=== PATIENT | female | born 1965 | race Hispanic/Latino ===

== ENCOUNTER 2018-04-12 14:01 | Observation (INO) | payer OTHER ==
[~2018-04-12] VITALS: Ht 170.2 cm; Wt 73.9 kg
[~2018-04-12 14:01] MED LIST: GLYBURIDE5 MG PO; LOSARTAN POTAS100 MG PO; METFORMIN HCL850 MG PO
[2018-04-12 15:01] LABS: BASOPHILS % 0.3 % (0.0-1.0); EOSINOPHILS # (AUTO) 0.1 (0.0-0.4); EOSINOPHILS % 1.7 % (0.0-6.0); HEMATOCRIT 42.3 % (34.2-44.1); HEMOGLOBIN 15.1 g/dL (12.0-16.0); LYMPHOCYTES # (AUTO) 2.2 (1.0-3.2); LYMPHOCYTES % 28.8 % (18.0-39.1); MEAN CORPUSCULAR HEMOGLOBIN 31.2 pg (28-32); MEAN CORPUSCULAR HGB CONC 35.7 g/dL (31-35); MEAN CORPUSCULAR VOLUME 87.4 fL (81-99); MONOCYTES # (AUTO) 0.7 (0.2-0.8); MONOCYTES % 9.3 % (4.4-11.3); NEUTROPHILS # (AUTO) 4.6 (2.1-6.9); NEUTROPHILS % 59.8 % (38.7-80.0); PLATELET COUNT 270 x10e3/uL (140-360); RED BLOOD COUNT 4.84 x10e6/uL (3.6-5.1); RED CELL DISTRIBUTION WIDTH 11.9 % (11.7-14.4)
[2018-04-12 15:02] LABS: CLARITY,URINE CLEAR (CLEAR); COLOR,URINE YELLOW (YELLOW); LEUKOCYTE ESTERASE ,URINE NEGATIVE (NEGATIVE); NITRITE,URINE NEGATIVE (NEGATIVE)
[2018-04-12 15:03] LABS: BILIRUBIN,URINE NEGATIVE (NEGATIVE); KETONES,URINE NEGATIVE (NEGATIVE); PROTEIN,URINE DIPSTICK NEGATIVE (NEGATIVE); URINE UROBILINOGEN 0.2 mg/dL (0.2 - 1)
[2018-04-12 15:14] LABS: EPITHELIAL CELLS,URINE FEW /LPF; RENAL EPITHELIAL CELLS,URINE RARE
[2018-04-12 15:17] LABS: ALANINE AMINOTRANSFERASE 62 IU/L (0-55); ALBUMIN/GLOBULIN RATIO 1.1 (0.8-2.0); ALKALINE PHOSPHATASE 106 IU/L (40-150); BLOOD UREA NITROGEN 14 mg/dL (7-26); BUN/CREATININE RATIO 18 (6-25); CALCIUM 10.1 mg/dL (8.4-10.2); CARBON DIOXIDE 24 mmol/L (22-29); CHLORIDE 98 mmol/L (98-107); CREATINE KINASE 221 IU/L (29-168); CREATININE, SERUM 0.76 mg/dL (0.57-1.11); EST GLOMERULAR FILTRATION RATE > 60 ML/MIN (60-); GLUCOSE 300 mg/dL (74-118); SODIUM 135 mmol/L (136-145)
[2018-04-12] MEDS ORDERED: ASPIRIN CHEW81 MG PO (16:02)
--- NOTE | 2018-04-12 16:05 | Diagnostic Imaging Report ---
Examination: Single AP view of the chest. COMPARISON: Chest x-ray 01/16/2017 INDICATION: None. IMPRESSION: 1. Lines and Tubes: None 2. Lungs are grossly clear. No consolidation or effusion. 3. Cardiomediastinal silhouette is normal. Pulmonary vasculature is normal. 4. No acute bony abnormalities. Signed by: Dr. Néstor Preciado M.D. on 04/12/2018 4:02 PM
[2018-04-12 16:10] LABS: INR 0.95; PROTHROMBIN TIME 11.9 seconds (11.9-14.5)
[2018-04-12 16:11] LABS: AMYLASE 195 U/L (25-125); LIPASE 375 U/L (8-78); PARTIAL THROMBOPLASTIN TIME 29.4 seconds (23.8-35.5)
[2018-04-12] MEDS ORDERED: ASPIRIN 81 MG CHEW TAB PO STA (16:26)
[2018-04-12] MEDS ORDERED: ASPIRIN 81 MG CHEW TAB PO ONE (16:45)
[2018-04-12] MEDS ORDERED: NITROGLYCERIN 0.4 MG SUBL SL PRN (16:45)
[2018-04-12] MEDS ORDERED: DEXTROSE 50% SYRINGE 50 ML IV PRN (16:45)
[2018-04-12] MEDS ORDERED: INSULIN REGULAR, HUMAN 100 UNIT/1 ML 3ML VIAL SQ ONE (16:45)
[2018-04-12 17:49] VITALS: BP 140/74
[2018-04-12 17:51] VITALS: BP 140/74
[2018-04-12 17:56] VITALS: BP 140/74
[2018-04-12 18:27] LABS: AMPHETAMINES SCREEN,URINE NEGATIVE (NEGATIVE); BENZODIAZEPINES SCREEN,URINE NEGATIVE (NEGATIVE); PHENCYCLIDINE SCREEN,URINE NEGATIVE (NEGATIVE)
[2018-04-12 20:00] VITALS: BP 141/75
[2018-04-12] MEDS: INSULIN REGULAR, HUMAN 100 UNIT/1 ML 3ML VIAL SQ SCH (20:26)
[2018-04-12] MEDS: MORPHINE SULFATE 2 MG/ML SYR IV PRN (22:46)
--- NOTE | 2018-04-12 23:23 | History and Physical ---
CLINICAL HISTORY: This is a 52-year-old woman, admitted via Dr. Cano's office and via the emergency room because of abdominal pains associated with abnormal EKG showing possible old anterior wall myocardial infarction. This patient says she presented to Dr. Cano's office today because of abdominal pains of 1-month duration. She states she has 2 different pains, 1 is in the lower back on the right side and the other is in the left upper quadrant. Both pains hurt about 7 on the scale of 10 and appears to be constant, not related to food ingestion and not related to certain position, although sitting may make the back pain worse. When asking for many occasions whether she has any other pains, she had failed to mention any chest pains. However, when it was asked why she was sent to the emergency room, she said she had abnormal EKG and now she said she had some fleeting chest pains described as sharp and then later as dull, lasting for a second, happening usually 2 or 3 times in sequence, a total of 10 times about a month ago, but none recently. She does have history of diabetes, hypertension and diet-controlled hyperlipidemia. MEDICATIONS: Not immediately available due to computer problem, but she is taking aspirin 81 mg per day as well as the above medications for diabetes and hypertension. PERSONAL AND SOCIAL HISTORY: Denies smoking, drinking, drug abuse. 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 FAMILY HISTORY: Father had bilateral knee replacements. Mother had CVA, diabetes, hypertension, right femoropopliteal bypass. Brothers and sisters are healthy. REVIEW OF SYSTEMS: Remarkable for dyspnea with exertion. She has some tingling in her fingers and toes which she thinks is due to diabetic neuropathy. Review of systems is otherwise noncontributory. PHYSICAL EXAMINATION GENERAL: She is alert, coherent. VITAL SIGNS: Stable. CARDIOVASCULAR: Jugular veins are not distended. S1, S2 are regular. There is no appreciable murmur. RESPIRATORY: Clear. ABDOMEN: Slight tenderness in left upper quadrant. EXTREMITIES: No cyanosis, clubbing or edema. IMPRESSION 1. Atypical left upper quadrant and lower back pains of undetermined etiology. Consider abdominal aneurysm, lumbar disk disease, gastritis. She does have some left upper quadrant tenderness. 2. Fleeting sharp and dull chest pains, not related to exertion with electrocardiogram showing possible old anterior wall myocardial infarction. 3. Diabetes. 4. Hypertension. 5. Diet-controlled hyperlipidemia. RECOMMENDATIONS: It should be noted that this patient has spoken with multiple nurses and gave them all different answers in lot of the above-mentioned complaints. No CT scan of the abdomen has been done. We will go ahead and proceed with CT scan of the abdomen as well as MRI scan of the lumbar spine. Because of left upper quadrant tenderness, consider gastroenterology consultation. With regard to the abnormal EKG, an echocardiogram has not been ordered. Her chest pains are very atypical for coronary artery disease although she does have multiple risk factors. In the future, she may benefit from stress testing. Thank you very much. Job#: [id number] cc:RASHAWN CANO MD
[2018-04-13] VITALS: BP 153/81
--- NOTE | 2018-04-13 00:08 | Diagnostic Imaging Report ---
EXAM: CT ABDOMEN/PELVIS W DATE: 04/12/2018 6:44 PM INDICATION: Abdominal pain COMPARISON: None TECHNIQUE: The abdomen and pelvis were scanned using a multidetector helical scanner. Coronal and sagittal reformations were obtained. IV Contrast: 100 ml Isovue 300/370 FINDINGS: LOWER THORAX: Mitral annulus calcification. Multiple bilateral pulmonary nodules, measuring up to 5 mm in the lower lobes. LIVER/BILIARY: Hepatic steatosis. No masses. No ductal dilatation. GALLBLADDER: Surgically absent SPLEEN: Unremarkable PANCREAS: Unremarkable ADRENALS: No nodules KIDNEYS: No suspicious renal masses. No hydronephrosis. GI TRACT: No wall thickening or evidence of obstruction. Normal appendix. Diverticulosis. VESSELS: Unremarkable PERITONEUM/RETROPERITONEUM: No free air or fluid LYMPH NODES: No lymphadenopathy REPRODUCTIVE ORGANS/BLADDER: Unremarkable SOFT TISSUES: Unremarkable BONES: No suspicious bone lesions. IMPRESSION: 1. No acute abnormality in the abdomen or pelvis. 2. Multiple bilateral pulmonary nodules. Recommend nonemergent follow-up chest CT. Signed by: Dr Allison Perez MD on 04/13/2018 12:05 AM
[2018-04-13 00:14] LABS: CREATINE KINASE MB 2.9 ng/mL (0-5.0)
[2018-04-13] MEDS ORDERED: SODIUM CHLORIDE 0.9% 50ML 50 ML ONE (00:47)
[2018-04-13] MEDS ORDERED: IOPAMIDOL 370 MG/ML 200 ML INFUS..BTL INJ ONE (00:47)
[2018-04-13 04:00] VITALS: BP 122/67
[2018-04-13] MEDS: MORPHINE SULFATE 2 MG/ML SYR IV PRN ×2 (04:45→21:47)
[2018-04-13 05:32] LABS: CHOL/HDL RATIO 3.9 (3.0-3.6); CHOLESTEROL 195 MD/DL (0-199); CREATINE KINASE 188 IU/L (29-168); HDL CHOLESTEROL 50 MG/DL (40-60); LDL CHOLESTEROL 90 MG/DL (60-130); TRIGLYCERIDES 276 MG/DL (0-149)
[2018-04-13] MEDS: INSULIN REGULAR, HUMAN 100 UNIT/1 ML 3ML VIAL SQ SCH ×4 (07:30→21:48)
[2018-04-13] MEDS: ASPIRIN 325 MG TAB EC PO SCH (07:34)
--- NOTE | 2018-04-13 07:34 | Consultation ---
DATE OF CONSULTATION: April 13, 2018 This is a 52 year old who has a history of hypertension, as well as diabetes, presented to the hospital because of abdominal pain, which is mainly up in the left upper quadrant area along with some nausea. She denies any vomiting along with this problem. Her workup so far she has had a CT scan of the abdomen and pelvis, which basically showed multiple bilateral pulmonary nodules. Her labs and CBC were okay. Chemistry including cardiac enzymes were unremarkable. Amylase was noted to be high at 195 and lipase was 275. Liver enzymes were mildly elevated too with AST of 44 and ALT of 62. She denies any history of ulcers in the past. Her other medical problems are significant for history of diabetes, history of hyperlipidemia, history of reflux, status post cholecystectomy. MEDICATIONS: At home are losartan. ALLERGIES: PENICILLIN. SOCIAL HISTORY: Denies any alcohol use. FAMILY HISTORY: Noncontributory. REVIEW OF SYSTEMS: Denies any chest pain at this point. Denies any shortness of breath. Denies any dysphagia or odynophagia. Denies any dysuria or hematuria or any kind of syncopal episode. PHYSICAL EXAMINATION GENERAL: The patient is awake, alert and appears to be stable. No acute distress at this point. VITAL SIGNS: Afebrile currently. Stable vital signs. HEENT: Normocephalic and atraumatic. Sclerae are anicteric. NECK: Supple. HEART: Regular. LUNGS: Clear. ABDOMEN: Soft. There is some tenderness in the left upper quadrant area. There is no rebound or mass. EXTREMITIES: No clubbing. LAB VALUES: Yesterday, BUN 14, creatinine 0.75, sodium 135. AST of 44 and ALT of 62. CBC was okay. Cardiac enzymes negative. CT scan as mentioned before. IMPRESSION 1. Abdominal pain. 2. The patient has some nausea. 3. . 4. Status post cholecystectomy. 5. CT scan shows fatty liver. RECOMMENDATIONS: Proceed with EGD scheduled for today. Follow labs. Job#: [id number] RI cc:MD RASHAWN HER MD
[2018-04-13 07:42] VITALS: BP 120/74
[2018-04-13 08:06] LABS: ALANINE AMINOTRANSFERASE 62 IU/L (0-55); ALBUMIN/GLOBULIN RATIO 1.1 (0.8-2.0); ALKALINE PHOSPHATASE 86 IU/L (40-150); ANION GAP 18.4 mmol/L (8-16); BLOOD UREA NITROGEN 14 mg/dL (7-26); BUN/CREATININE RATIO 19 (6-25); CALCIUM 10.2 mg/dL (8.4-10.2); CARBON DIOXIDE 25 mmol/L (22-29); CHLORIDE 102 mmol/L (98-107); CREATININE, SERUM 0.73 mg/dL (0.57-1.11); EST GLOMERULAR FILTRATION RATE > 60 ML/MIN (60-); GLUCOSE 143 mg/dL (74-118); POTASSIUM 4.4 mmol/L (3.5-5.1); SODIUM 141 mmol/L (136-145)
--- NOTE | 2018-04-13 09:30 | Cardiology Report ---
DATE OF STUDY: April 12, 2018 ECHOCARDIOGRAM M-MODE: Normal chamber sizes. Left ventricular hypertrophy. Normal contractility. Sclerosis of mitral valve annulus. Normal tricuspid valve. No pericardial effusion. SECTOR SCAN: Normal chamber sizes. Mild concentric left ventricular hypertrophy. Normal contractility. Ejection fraction is approximately 65%. Mitral valve slightly sclerotic at the annulus. Normal aortic and tricuspid valves. No pericardial effusion. CARDIAC DOPPLER STUDY WITH COLOR: Suggestion of diastolic dysfunction. CONCLUSIONS: 1. Concentric left ventricular hypertrophy with ejection fraction of approximately 65%. 2. Suggestion of impaired relaxation. 3. Mild sclerosis of mitral valve annulus. 4. Trace tricuspid regurgitation without significant pulmonary hypertension. Pulmonary artery systolic pressure estimated at 32 mmHg. Job#: [id number] cc:RASHAWN ERVIN MD
[2018-04-13 11:15] VITALS: BP 126/72
[2018-04-13 15:08] VITALS: BP 130/71
[2018-04-13] MEDS ORDERED: PROPOFOL IV EMULSION 10 MG/ML 20 ML VIAL ONE (16:58)
--- NOTE | 2018-04-13 17:35 | Diagnostic Imaging Report ---
History: Low back pain Comparison studies: Sagittal images over a CT of the abdomen and pelvis on 04/12/2018 Technique: Sagittal, coronal and axial T2 , sagittal T1 and IR, axial spin density oblique. Intravenous contrast: None Findings: Number of lumbar vertebral bodies:5 Alignment: Normal lordosis.No scoliosis. Soft tissues: No T2 hyperintense inflammatory changes. Paraspinal muscles: Mild fatty infiltrated at L5-S1. Lower thoracic cord:Normal in signal and morphology. The tip of the conus is at T12-L1. Cauda equina: No masses. No arachnoiditis. Vertebrae: Normal in height and signal intensity. No compression fractures, infection or neoplasm. Degenerative changes: L1-L2: No abnormalities. L2-L3: No abnormalities. L3-L4: Mildly degenerated disc. Focal Modic type I changes along the inferior endplate of L4 on the left. A 5 mm central/right central disc protrusion indents the thecal sac, results in mild spinal canal stenosis and abuts the right L4 nerve root. Patent foramina. Normal facets. L4-L5: Early degenerated disc (decreased T2 signal). No Modic type I changes along the endplates. A 3 mm central/right central disc protrusion indents the thecal sac, does not result in spinal canal stenosis but abuts the right L5 nerve root. Patent foramina. Normal facets. L5-S1: Early degenerated disc (decreased in T2 signal). No moderate type I changes along the endplates. Patent spinal canal and foramina. No evidence of herniation. Normal facets. Partially visualized sacrum: No signal abnormalities. IMPRESSION: 1. Mildly degenerated disc at L3-4, early degenerated disc at L4-5 and L5-S1. 2. Central/right central disc protrusions at L3-4 and at L4-5 abut the corresponding \E\right L4 and right L5 nerve roots. 3. No significant spinal canal stenosis. Patent foramina. Signed by: Dr. Terry Botello M.D. on 04/13/2018 5:32 PM
[2018-04-13] MEDS ORDERED: FENTANYL CITRATE/PF 100MCG/2 ML INJ ONE (17:41)
[2018-04-13] MEDS ORDERED: MIDAZOLAM HCL 2 MG/2 ML VIAL ONE (17:41)
[2018-04-13 20:00] VITALS: BP 131/75
[2018-04-14] VITALS: BP 109/55
[2018-04-14 04:00] VITALS: BP 161/72
[2018-04-14] MEDS: INSULIN REGULAR, HUMAN 100 UNIT/1 ML 3ML VIAL SQ SCH ×3 (07:30→16:56)
[2018-04-14] MEDS: ASPIRIN 325 MG TAB EC PO SCH (07:33)
[2018-04-14 07:40] VITALS: BP 130/69
[2018-04-14] MEDS: MORPHINE SULFATE 2 MG/ML SYR IV PRN (11:00)
--- NOTE | 2018-04-14 11:34 | Discharge Summary ---
CLINICAL HISTORY: This is a 52-year-old woman admitted via Dr. Cano's office because of back pain, abdominal pain and ECG showing possible old anterior septal myocardial infarction. Please refer to my previous dictation concerning details of current illness, past medical history, personal and social history, family history, review of systems, physical examination and initial laboratory studies. HOSPITAL COURSE: The patient underwent echocardiogram, which showed left ventricular hypertrophy with ejection fraction of 65%, with suggestion of impaired relaxation but no evidence of regional wall-motion abnormality. She underwent a stress test. The 1st portion was negative, but the nuclear portion is still pending. She was found to have pancreatitis with elevated lipase of 375 and elevated amylase of 193. Additionally, her triglyceride was elevated at 278. She was placed n.p.o. and on intravenous fluids with symptomatic improvement. GI consultation was obtained with Dr. Andrea Fonseca, who performed endoscopy showing gastritis. The patient is status post cholecystectomy. No ERCP was done. However, MRCP was ordered. Results are still pending. CT scan of the abdomen was not done in the emergency room; but when it was ordered later, it showed no definite intra-abdominal pathology. However, it did show multiple pulmonary nodules and fatty liver. Her lumbar spine MRI showed right-sided radiculopathy at L4 and L5 without no significant spinal stenosis. The patient was instructed on these findings and will follow further with Dr. Rashawn Cano and be referred to the appropriate specialist on an outpatient basis. She is discharged on a bland diet. DISCHARGE DIAGNOSES 1. Acute pancreatitis with elevated lipase of 375, amylase of 195 and triglycerides of 276. 2. Elevated triglycerides at 276. 3. Elevated liver functions with aspartate aminotransferase of 44 and alanine aminotransferase of 62. 4. Gastritis per Dr. Andrea Fonseca. 5. Rule out choledocholithiasis with MRI scan still pending. 6. Abnormal electrocardiogram with no evidence of previous myocardial infarction by echocardiogram. 7. Mild diastolic dysfunction with impaired relaxation. 8. Multiple pulmonary nodules, possibly responsible for chest pains. 9. The stress test was negative on the electrocardiogram portion, but the nuclear image portion is still pending. 10. Diabetes, poorly controlled. 11. Hypertension. 12. Diet-controlled hyperlipidemia, may require medications in the future particularly to control hypertriglyceridemia because of pancreatitis. RONY BOSE MD Job#: [id number] cc:MD RASHAWN EDGE MD
[2018-04-14] MEDS: SODIUM CHLORIDE 0.9% 1000ML 1,000 ML IV SCH ×2 (11:48→17:17)
--- NOTE | 2018-04-14 13:24 | Diagnostic Imaging Report ---
EXAMINATION: MRI Abdomen with and without contrast. TECHNIQUE: Axial T1 nonfat sat in and out of phase, axial T2 fat sat, coronal T2 nonfat sat, axial DWI and ADC MR images of the abdomen were obtained before and after the administration of 14 cc of gadolinium. Axial T1 fat sat GRE dynamic images in precontrast, arterial, venous and delayed phases were obtained. Subtraction images were also performed Heavily T2-weighted MRCP images were also performed including thick and thin slab ASSETT, and 3-D reconstructions. CLINICAL HISTORY:Pancreatitis, abdominal pain COMPARISON: CT abdomen and pelvis 02/10/2018 FINDINGS: LOWER THORAX: Unremarkable. Previously described pulmonary nodules on CT abdomen are not clearly seen in this exam. LIVER: Mild hepatomegaly, measuring 16 cm in the right midclavicular line. Normal contour. Signal dropout on out of phase images consistent with steatosis.. . No focal hepatic lesions. BILIARY: No intra or extrahepatic biliary ductal dilation.. The common bile duct measures approximately 5.6 mm at the denton hepatis and 4.8 mm the pancreatic head. No intraluminal filling defects, strictures or extrinsic compressions. Normal luminal contour. Cholecystectomy clips. PANCREAS: No mass or ductal dilatation. Normal enhancement of the pancreatic parenchyma, without surrounding increased T2 signal to suggest fluid or inflammatory changes. SPLEEN: No splenomegaly. ADRENALS: No nodules. KIDNEYS: No hydronephrosis or solid enhancing mass in the imaged portion of the kidneys. PERITONEUM / RETROPERITONEUM: No upper abdominal free fluid. GI TRACT: Visualized bowel shows no dilation or obstruction. LYMPH NODES: No upper abdominal lymphadenopathy. VESSELS: The celiac trunk, superior and inferior mesenteric and bilateral renal arteries are patent. The portal, superior mesenteric and splenic veins are patent. No collateral circulation. BONES AND SOFT TISSUES: No abnormal bone marrow signal. No soft tissue abnormalities. IMPRESSION: 1. No MR evidence of pancreatitis. Please note that the MR appearance of the pancreas may be normal in cases of mild pancreatitis. 2. No intra or extrahepatic biliary ductal dilation. No MR evidence of choledocholithiasis. Status post cholecystectomy. 3. Mild hepatomegaly with diffuse fatty infiltration. Signed by: Dr. Néstor Preciado M.D. on 04/14/2018 1:20 PM
--- NOTE | 2018-04-14 13:58 | Cardiology Report ---
DATE OF STUDY: April 14, 2018 NUCLEAR STRESS TEST INDICATIONS: A 52-year-old white woman who presented with persistent chest pains. EKG showing possible old anterior inferior myocardial infarction. Echocardiogram was negative. She does have pancreatitis. However, because of persistent symptoms it was felt that eventually she will need a stress test. During the stress test she had no chest pains. The nuclear image as follows: There were no significant defects. Ejection fraction was 71%. CONCLUSIONS: 1. Negative nuclear perfusion imaging for ischemia with no evidence of defect anteriorly or inferiorly. 2. Negative electrocardiographic stress test with no significant ST segment depression. 3. No complaints of chest pains with exercise. 4. Normal blood pressure response. 5. No significant arrhythmias with exercise. Job#: [id number] EV cc: RASHAWN ERVIN MD
[2018-04-14 15:17] VITALS: BP 145/76
[2018-04-14] MEDS ORDERED: CARAFATE1 GM/10 ML PO (17:36)
[2018-04-14] MEDS ORDERED: NEXIUM40 MG PO (17:36)
== END 2018-04-14 17:57 | disposition home or self-care (01) ==
LOC: ER 14:01 → ERHOLD 16:40 → IMCU 17:33
PROVIDERS: ADMIT Internal Medicine Cardiovascular Disease; ATTEND Internal Medicine Cardiovascular Disease
DX: K85.90 Acute pancreatitis without necrosis or infection, unspecified (principal); R07.9 Chest pain, unspecified; R94.31 Abnormal electrocardiogram [ECG] [EKG]; E87.1 Hypo-osmolality and hyponatremia; E78.5 Hyperlipidemia, unspecified; I10 Essential (primary) hypertension; R10.12 Left upper quadrant pain; Z88.0 Allergy status to penicillin; K76.0 Fatty (change of) liver, not elsewhere classified; Z90.49 Acquired absence of other specified parts of digestive tract; K29.70 Gastritis, unspecified, without bleeding; E78.1 Pure hyperglyceridemia; R91.8 Other nonspecific abnormal finding of lung field; E11.65 Type 2 diabetes mellitus with hyperglycemia; K21.0 Gastro-esophageal reflux disease with esophagitis; K44.9 Diaphragmatic hernia without obstruction or gangrene
CPT/HCPCS: 36415 ×3; 43239; 71045; 72148; 74177; 74183; 78452; 80053 ×2; 80061; 80307; 81001; 82150 ×2; 82378; 82550 ×2; 82553 ×2; 82948 ×3; 83690 ×2; 84484 ×2; 84702; 85025; 85610; 85730; 88305; 88312; 93005; 93017; 93306; 97161; 99284; A9502; G0378 ×3; G8978; G8979; G8980; J2250; J2270 ×3; J7030; Q9967